=== PATIENT | male | born 1980 | race Two or more races ===

== ENCOUNTER 2018-03-28 06:17 | Inpatient (IN) | payer OTHER ==
[~2018-03-28] VITALS: Ht 185.4 cm; Wt 137.9 kg
[2018-03-28] MEDS ORDERED: MORPHINE SULFATE 4 MG/ML, 1ML ONE (06:41)
[2018-03-28] MEDS ORDERED: MORPHINE SULFATE 4 MG/ML, 1ML IVPush PRN (07:00)
--- NOTE | 2018-03-28 07:19 | NUR ---
patient safe in bed, hector alvarez from [facility], patient safe in bed, call light in reach, no additional needs/questions at this time.
[2018-03-28] MEDS ORDERED: ONDANSETRON 2MG/ML, 2ML IVPush PRN (07:30)
--- NOTE | 2018-03-28 08:12 | NUR ---
report given to [facility], patient updated of transfer plan, NPO status maintained, RTG status now.
[2018-03-28 08:37] VITALS: BP 152/93
[2018-03-28] MEDS: morphine SULFATE 10 MG/ML, 1ML IVPush PRN ×3 (09:30→18:25)
[2018-03-28] MEDS: CLINDAMYCIN PMX 600MG/50ML 50 ML IV SCH ×2 (10:50→18:25)
[2018-03-28] MEDS: SODIUM CHLORIDE 0.9% 1,000 ML IV SCH ×2 (10:51→18:25)
[2018-03-28] MEDS ORDERED: NICOTINE 14MG/24 HR PATCH.TD24 TD ONE (11:00)
[2018-03-28 13:17] VITALS: BP 127/83
[2018-03-28 19:00] VITALS: BP 115/74
[2018-03-28] MEDS ORDERED: HYDROcodone/APAP 5/325 TABLET ONE (20:18)
[2018-03-28] MEDS: KETOROLAC 30 MG/1 ML IV PRN (20:22)
[2018-03-28] MEDS: HYDROcodone/APAP 5/325 TABLET PO PRN (20:22)
[2018-03-29 01:11] VITALS: BP 138/84
[2018-03-29] MEDS: SODIUM CHLORIDE 0.9% 1,000 ML IV SCH ×2 (02:17→06:20)
[2018-03-29] MEDS: KETOROLAC 30 MG/1 ML IV PRN ×2 (02:17→10:39)
[2018-03-29] MEDS: CLINDAMYCIN PMX 600MG/50ML 50 ML IV SCH ×2 (02:17→09:33)
[2018-03-29] MEDS: HYDROcodone/APAP 5/325 TABLET PO PRN (02:51)
[2018-03-29 05:11] LABS: BASOPHILS % (AUTO) 1 % (0-1); EOSINOPHILS # (AUTO) 0.03 x10^3/uL (0-0.4); EOSINOPHILS % (AUTO) 0 % (1-7); LYMPHOCYTES # (AUTO) 2.13 x10^3/uL (1-3.4); LYMPHOCYTES % (AUTO) 24 % (22-44); MD NO; MEAN CORPUSCULAR HEMOGLOBIN 28.8 pg (27.5-34.5); MEAN CORPUSCULAR HGB CONC 33.3 g/dL (33.2-36.2); MEAN CORPUSCULAR VOLUME 86.4 fL (81-97); MEAN PLATELET VOLUME 7.5 fL (7.4-10.4); MONOCYTES # (AUTO) 1.11 x10^3/uL (0.2-0.8); MONOCYTES % (AUTO) 12 % (2-9); NEUTROPHILS # (AUTO) 5.64 x10^3/uL (1.8-6.8); NEUTROPHILS % (AUTO) 63 % (42-75); PLATELET COUNT 320 x10^3/uL (130-400); RED BLOOD COUNT 4.73 x10^6/uL (4.38-5.82); RED CELL DISTRIBUTION WIDTH 13.7 % (9.4-14.8)
[2018-03-29 05:24] LABS: CHLORIDE 107 mmol/L (98-107)
[2018-03-29 05:32] LABS: ALANINE AMINOTRANSFERASE 23 U/L (12-78); ALBUMIN 2.9 g/dL (3.4-5.0); ALKALINE PHOSPHATASE 73 U/L (45-117); ANION GAP 5 mmol/L (5-15); BILIRUBIN,TOTAL 1.5 mg/dL (0.2-1.0); CALCIUM 8.4 mg/dL (8.5-10.1); CREATININE 0.83 mg/dL (0.7-1.3); TOTAL PROTEIN 6.9 g/dL (6.4-8.2)
[2018-03-29 09:00] VITALS: BP 121/81
[2018-03-29] MEDS: morphine SULFATE 10 MG/ML, 1ML IVPush PRN (09:33)
== END 2018-03-29 11:43 | disposition home or self-care (01) | DRG 872 ==
LOC: ED 07:10 → EDIP 07:11 → SUATTDRO 07:15 → ED 07:33 → 4NOR 08:25 → DCLOUNGE 03-29 11:36
PROVIDERS: ADMIT Hospitalist; ATTEND Hospitalist
DX: A41.9 Sepsis, unspecified organism (principal); Z68.41 Body mass index [BMI] 40.0-44.9, adult; L03.211 Cellulitis of face; E66.01 Morbid (severe) obesity due to excess calories; J32.0 Chronic maxillary sinusitis; K04.7 Periapical abscess without sinus; S02.5XXA Fracture of tooth (traumatic), initial encounter for closed fracture; X58.XXXA Exposure to other specified factors, initial encounter; Z87.891 Personal history of nicotine dependence; Y93.89 Activity, other specified; Y92.89 Other specified places as the place of occurrence of the external cause; Y99.8 Other external cause status
CPT/HCPCS: 36415; 80053; 83735; 84100; 85025; 87040; 96374; 99285; G0378; J1885; J2270; J7030